=== PATIENT | male | born 1975 | race Caucasian/White ===

== ENCOUNTER 2016-09-11 12:11 | Emergency (ER) | payer OTHER ==
[2016-09-11 12:14] VITALS: BP 151/98; PULSE 76; TEMP 98.2; BMI 27.4
[2016-09-11] MEDS ORDERED: DIPHTH,PERTUSS(ACELL),TET 0.5 ML DISP.SYRIN IM ONE (12:26)
--- NOTE | 2016-09-11 12:31 | PDOC ---
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 MUSCULOSKELETAL: No: back pain, neck pain, joint pain, muscle swelling or pain SKIN: No: lesions, pallor, rash or easy bruising. NEUROLOGIC: No: headache, vertigo, paresthesias, weakness GENERAL: The patient is in no acute distress. EXTREMITIES: Normal range of motion, no edema. LAceration of 2.0 mm on the dorsum of the hand between 1st and 2nd digits No active bleeding R/M/U sensation intact R/M/U motor intact NEUROLOGICAL: Sensation intact, no numbness or tingling SKIN: please see above Past History - Past Medical History Allergies/Adverse Reactions: Allergies Allergy/AdvReac Type Severity Reaction Status Date / Time No Known Allergies Allergy Verified 09/11/16 12:12 Home Medications: Ambulatory Orders Acetaminophen W/ Codeine #3 [Tylenol # 3 -] 1 tab PO Q6H PRN #12 tablet MDD 4 Cephalexin [Keflex] 500 mg PO QID #20 capsule 09/11/16 Other medical history: DENIES - Psycho/Social/Smoking Cessation Hx Anxiety: No Suicidal Ideation: No Smoking History: Never smoked Hx Alcohol Use: No Drug/Substance Use Hx: No Substance Use Type: None *Physical Exam - Vital Signs Last Vital Signs Temp Pulse Resp BP Pulse Ox 98.2 F 76 18 151/98 100 09/11/16 12:12 09/11/16 12:12 09/11/16 12:12 09/11/16 12:12 09/11/16 12:12 Procedures - Laceration/Wound Repair Left Dorsal Hand Wound Length: 2.6 to 5.0 cm Wound Explored: clean Wound's Depth, Shape: superficial, linear Irrigated w/ Saline: Yes Anesthesia: 1% Lidocaine Amount of Anesthetic (ccs): 3 Wound Debrided: minimal Wound Repaired With: Sutures Suture Size/Type: 5:0 Number of Sutures: 5 Layer Closure: No Sterile Dressing Applied: Yes Progress: 09/11/16 13:39 Pt tolerated procedure well No bleeding noted post procedure ED Treatment Course - RADIOLOGY Radiology Studies Ordered: Category Date Time Status HAND- LEFT [RAD] Stat Radiology 09/11/16 12:25 Ordered Medical Decision Making - Medical Decision Making 09/11/16 12:31 Will do Xray Will give Tetanus shot Will irrigate and close wound 09/11/16 13:36 Hand sutured Pt state he had a Tetanus shot Will discharge to home Return in 7-10 days for suture removal 09/11/16 13:42 *DC/Admit/Observation/Transfer Diagnosis at time of Disposition: Laceration of hand Qualifiers: Encounter type: initial encounter Laterality: left Qualified Code(s): S61.412A - Laceration without foreign body of left hand, initial encounter - Discharge Dispostion Disposition: HOME Condition at time of disposition: Improved Admit: No - Prescriptions Prescriptions: Cephalexin [Keflex] 500 mg PO QID #20 capsule Acetaminophen W/ Codeine #3 [Tylenol # 3 -] 1 tab PO Q6H PRN #12 tablet MDD 4 PRN Reason: Severe Pain - Patient Instructions Printed Discharge Instructions: DI for Laceration Repair Additional Instructions: Angel I am sorry that you cut yourself today Please do not get your wound wet for the next 48 hours You can remove your dressing at that point as well Please keep wound clean Please apply antibiotic ointment twice daily PLease monitor for red skin around your laceration, or redness streaking up your arm, fevers or chills If you have these issues, please return to the ER Please return to the ER for suture removal in 7-10 days You are restricted upon return to work while sutures are in place You should not be handling food and you should not soak your hands in water
== END 2016-09-11 13:54 | disposition home or self-care (01) ==
LOC: FER 12:11
PROC: 0HQGXZZ Repair Left Hand Skin, External Approach (ICD-10-PCS; principal; 2016-09-11)
DX: S61.412A Laceration without foreign body of left hand, initial encounter (principal); W26.0XXA Contact with knife, initial encounter; Y93.G1 Activity, food preparation and clean up; Y92.9 Unspecified place or not applicable; Y99.0 Civilian activity done for income or pay
CPT/HCPCS: 73130-TC-LT; 99282-25